=== PATIENT | female | born 1985 | race African-American/Black ===

== ENCOUNTER 2018-06-15 04:56 | Emergency (ER) | payer MEDICAID ==
[2018-06-15 05:03] VITALS: BP 119/63
[2018-06-15] MEDS ORDERED: CEPHALEXIN 500 MG CAPSULE PO ONE (05:47)
[2018-06-15] MEDS ORDERED: HYDROCODONE/ACETAMINOPHEN 10-325 MG TABLET PO ONE (05:48)
[2018-06-15] MEDS ORDERED: SULFAMETHOXAZOLE/TRIMETHOPRIM 800-160 MG TABLET PO ONE (05:48)
[2018-06-15] MEDS ORDERED: HYDROCODONE/ACETAMINOPHEN 5-325 MG (6 TAB/ER DISP) PO PRN (06:27)
--- NOTE | 2018-06-15 06:27 | ER Document Report ---
HPI - HPI Patient complains to provider of: Abscess Time Seen by Provider: 06/15/18 05:38 Pain Level: 5 Context: Patient is an otherwise healthy 32-year-old female resents to the emergency department for a potential abscess. Patient states she has a history of pilonidal abscesses. Patient states she has experienced some swelling and pain the same area her recent pilonidal abscess was which is what presents her to the emergency room. Patient's denying any fever, drainage from the area. - REPRODUCTIVE Reproductive: DENIES: : Past Medical History - General Information source: Patient - Social History Smoking Status: Current Every Day Smoker Chew tobacco use (# tins/day): No Drug Abuse: None Family History: Reviewed & Not Pertinent Patient has suicidal ideation: No Patient has homicidal ideation: No - Past Medical History Cardiac Medical History: Denies: Hx Atrial Fibrillation, Hx Congestive Heart Failure, Hx Coronary Artery Disease Pulmonary Medical History: Reports: Hx Asthma Denies: Hx Bronchitis, Hx Intubation, Hx Respiratory Failure Neurological Medical History: Denies: Hx Cerebrovascular Accident, Hx Migraine, Hx Seizures Endocrine Medical History: Denies: Hx Graves' Disease, Hx Hyperthyroidism Renal/ Medical History: Denies: Hx End Stage Renal Disease, Hx Hemodialysis, Hx Hydrocele, Hx Kidney Stones, Hx Peritoneal Dialysis Malignancy Medical History: Denies: Hx Bone Cancer, Hx Brain Cancer, Hx Breast Cancer GI Medical History: Denies: Hx Crohn's Disease, Hx Diverticulitis, Hx Gastroesophageal Reflux Disease Musculoskeletal Medical History: Denies Hx Fibromyalgia, Denies Hx Gout - Immunizations Immunizations up to date: Yes Hx Diphtheria, Pertussis, Tetanus Vaccination: Yes Vertical Provider Document - CONSTITUTIONAL Agree With Documented VS: Yes Notes: GENERAL: Alert, interacts well. No acute distress. HEAD: Normocephalic, atraumatic. EYES: Pupils equal, round, and reactive to light. Extraocular movements intact. ENT: Oral mucosa moist, tongue midline. NECK: Full range of motion. Supple. Trachea midline. LUNGS: Clear to auscultation bilaterally, no wheezes, rales, or rhonchi. No respiratory distress. HEART: Regular rate and rhythm. No murmur ABDOMEN: Soft, non-tender. Non-distended. Bowel sounds present in all 4 quadrants. EXTREMITIES: Moves all 4 extremities spontaneously. No edema, normal radial and dorsalis pedis pulses bilaterally. No cyanosis. BACK: no cervical, thoracic, lumbar midline tenderness. No saddle anesthesia, normal distal neurovascular exam. NEUROLOGICAL: Alert and oriented x3. Normal speech. cranial nerves II through XII grossly intact PSYCH: Normal affect, normal mood. SKIN: Warm, dry, normal turgor. 1 cm x 1 cm indurated area noted to the pilonidal cleft, surrounding erythema noted 3cm x 3cm. Skin is nonfluctuant at this time, very hard to touch. - INFECTION CONTROL TRAVEL OUTSIDE OF THE [place] IN LAST 30 DAYS: No Course - Re-evaluation Re-evalutation: 06/15/18 06:25 I have discussed with patient at length that this could potentially be the start of an abscess. I have also discussed with her that it is hard to touch at this time. Discussed that in order for us to perform an incision and drainage needs to be fluctuant. Discussed use of antibiotics and warm compresses or warm baths with Epson salt. Patient voices understanding, is afebrile, non-tachycardic, stable for discharge. - Vital Signs Vital signs: Temp Pulse Resp BP Pulse Ox 98 F 88 18 119/63 98 06/15/18 05:02 06/15/18 05:02 06/15/18 05:02 06/15/18 05:02 06/15/18 05:02 Discharge - Discharge Clinical Impression: Abscess Cellulitis Qualifiers: Site of cellulitis: buttock Qualified Code(s): L03.317 - Cellulitis of buttock Condition: Stable Disposition: HOME, SELF-CARE Instructions: Abscess ([facility]), Cephalexin ([facility]), Trimethoprim-Sulfa ([facility]), Oral Narcotic Medication ([facility]), Cellulitis ([facility]) Additional Instructions: As we discussed you have been seen and treated in the emergency department for a potential abscess. At this point time the skin around this pocket of infection is very hard. You should use warm compresses or warm baths with Epson salt to bring this abscess to ahead as we discussed. Please also take antibiotics as prescribed. Please make sure you return to the emergency room for any further concerns or follow-up with your primary care provider. Prescriptions: Cephalexin Monohydrate [Keflex 500 mg Capsule] 500 mg PO BID 7 Days #14 capsule Sulfamethoxazole/Trimethoprim [Bactrim Ds Tablet] 1 each PO BID 7 Days #14 tablet Forms: Return to Work Referrals: KRISTIN BEAN MD [ACTIVE STAFF] - Follow up as needed
== END 2018-06-15 07:06 | disposition home or self-care (01) ==
LOC: ER 04:56
DX: L03.317 Cellulitis of buttock (principal); F17.200 Nicotine dependence, unspecified, uncomplicated
CPT/HCPCS: 99282; J3490

== ENCOUNTER 2018-08-07 02:36 | Emergency (ER) | payer MEDICAID ==
[2018-08-07] MEDS ORDERED: CLINDAMYCIN HCL 150 MG CAPSULE PO ONE (04:49)
--- NOTE | 2018-08-07 04:56 | ER Document Report ---
ED General - General Chief Complaint: Abscess Stated Complaint: CYST Time Seen by Provider: 08/07/18 04:40 Notes: Patient is a pleasant 32-year-old female who presents with complaint of a spinal abscess. She says she had this once before and was placed on antibiotics and went away.'s approximately month ago. Has since returned. She denies any fevers. No vomiting. No other complaints at this time. TRAVEL OUTSIDE OF THE [place] IN LAST 30 DAYS: No - Related Data Allergies/Adverse Reactions: iodine [Iodine] Allergy (Severe, Verified 08/07/18 02:37) Shellfish * [Shellfish] Allergy (Severe, Verified 08/07/18 02:37) Past Medical History - Social History Smoking Status: Unknown if Ever Smoked Frequency of alcohol use: None Drug Abuse: None Family History: Reviewed & Not Pertinent - Past Medical History Cardiac Medical History: Denies: Hx Atrial Fibrillation, Hx Congestive Heart Failure, Hx Coronary Artery Disease Pulmonary Medical History: Reports: Hx Asthma Denies: Hx Bronchitis, Hx Intubation, Hx Respiratory Failure Neurological Medical History: Denies: Hx Cerebrovascular Accident, Hx Migraine, Hx Seizures Endocrine Medical History: Denies: Hx Graves' Disease, Hx Hyperthyroidism Renal/ Medical History: Denies: Hx End Stage Renal Disease, Hx Hemodialysis, Hx Hydrocele, Hx Kidney Stones, Hx Peritoneal Dialysis Malignancy Medical History: Denies: Hx Bone Cancer, Hx Brain Cancer, Hx Breast Cancer GI Medical History: Denies: Hx Crohn's Disease, Hx Diverticulitis, Hx Gastroesophageal Reflux Disease Musculoskeletal Medical History: Denies Hx Fibromyalgia, Denies Hx Gout - Immunizations Immunizations up to date: Yes Hx Diphtheria, Pertussis, Tetanus Vaccination: Yes Review of Systems - Review of Systems Notes: My Normal Review Basic REVIEW OF SYSTEMS: CONSTITUTIONAL : Denies fever, chills, or sweats. Denies recent illness. RESPIRATORY: Denies cough, cold, or chest congestion. Denies shortness of breath, difficulty breathing, or wheezing. GASTROINTESTINAL: Denies abdominal pain. Denies nausea, vomiting, or diarrhea. GENITOURINARY: Denies difficulty urinating, painful urination, burning, frequency, or blood in urine. MUSCULOSKELETAL: Pain in the area of swelling in the upper gluteal cleft. SKIN: Denies rash or skin lesions. NEUROLOGICAL: Denies altered mental status or loss of consciousness. Denies headache. Denies weakness or paralysis or loss of use of either side. Denies problems with gait or speech. Denies sensory or motor loss. ALL OTHER SYSTEMS REVIEWED AND NEGATIVE. Physical Exam - Vital signs Vitals: Temp Pulse Resp BP 97.8 F 92 20 117/74 08/07/18 02:39 08/07/18 02:39 08/07/18 02:39 08/07/18 02:39 - Notes Notes: General Appearance: Well nourished, alert, cooperative, no acute distress, mild obvious discomfort. Vitals: reviewed, See vital signs table. Gluteal region: Patient has a small area of fluctuance at the superior gluteal cleft. Bedside ultrasound does show a small fluid collection consistent with an abscess. No surrounding crepitance. Localized erythema. Extremities: strength 5/5 in all extremities, good pulses in all extremities, Skin: warm, dry, appropriate color, no rash Neuro: speech clear, oriented x 3, normal affect, responds appropriately to questions. Course - Re-evaluation Re-evalutation: 08/07/18 05:18 Patient does have a small pilonidal abscess. I informed her it is best to incise and drain this as it would be less likely that this will come back and it would probably not worsen. I informed patient that if we do not incise and drain it and just place her on antibiotics that it may improve; however, there is a good chance that will come back even if it does improve and there is also a good chance that it would actually worsen increase in size and she could become sick because of this. Patient shows understanding of this but says that she has to take her son to [place] and wants to be able get in the pool with him and therefore does not want incised and drained and prefers just be on antibiotics. She said she would go to the closest ER if she starts having increasing swelling, spreading redness, fevers, or she feels it is worsening in any way. Patient will be discharged home as she requests on antibiotics. Dictation of this chart was performed using voice recognition software; therefore, there may be some unintended grammatical errors. - Vital Signs Vital signs: Temp Pulse Resp BP Pulse Ox 97.8 F 92 20 117/74 08/07/18 02:39 08/07/18 02:39 08/07/18 02:39 06/25/19 02:39 Discharge - Discharge Clinical Impression: Pilonidal abscess Condition: Stable Disposition: HOME, SELF-CARE Additional Instructions: As discussed with you we do recommend incising and draining the abscess you have. We do understand that you do have to go on vacation. We will place you on antibiotics and delay incision and drainage at this time. Antibiotics may make the abscess improve, but there is a good chance that it will return. There is also chance that it will get worse become larger. It is very important that you go to the nearest ER if this abscess or the swelling grows in size. Please have a low threshold to return to ER immediately if you have fevers, increasing size of swelling, increasing pain, or if you feel unwell in any way. Prescriptions: Clindamycin HCl [Cleocin 150 mg Capsule] 300 mg PO Q6 #56 capsule Forms: Return to Work
[2018-08-07 05:19] VITALS: BP 116/79
== END 2018-08-07 05:20 | disposition home or self-care (01) ==
LOC: ER 02:36
DX: L05.01 Pilonidal cyst with abscess (principal); J45.909 Unspecified asthma, uncomplicated; Z91.013 Allergy to seafood
CPT/HCPCS: 99282; J3490

== ENCOUNTER 2018-12-07 13:05 | Emergency (ER) | payer SELFPAY ==
[2018-12-07] MEDS ORDERED: METOCLOPRAMIDE HCL INJ/PF 10 MG/2 ML SDV IV ONE (14:14)
[2018-12-07] MEDS ORDERED: NORMAL SALINE 1000 ML 1,000 ML IV ONE (14:14)
--- NOTE | 2018-12-07 14:16 | ER Document Report ---
ED Medical Screen (RME) - General Chief Complaint: Pelvic Pain Stated Complaint: VOMITING,ABDOMINAL PAIN, BACK PAIN Time Seen by Provider: 12/07/18 14:07 Notes: 33-year-old female with recent positive test 2 weeks ago presents to the emergency department with nausea and vomiting every time she attempts to eat or drink anything. She is also having pelvic cramping which is her chief concern. Denies any vaginal bleeding. No initial encounter with OB yet. Denies fevers or chills, denies urinary symptoms. Exam: Well-appearing in no acute distress, lungs are clear in all smith, regular cardiac rate and rhythm, abdominal exam deferred in triage I have greeted and performed a rapid initial assessment of this patient. A comprehensive ED assessment and evaluation of the patient, analysis of test results and completion of medical decision making process will be conducted by an additional ED providers. TRAVEL OUTSIDE OF THE [place] IN LAST 30 DAYS: No - Related Data Allergies/Adverse Reactions: iodine [Iodine] Allergy (Severe, Verified 12/07/18 13:58) Shellfish * [Shellfish] Allergy (Severe, Verified 12/07/18 13:58) Past Medical History - Past Medical History Cardiac Medical History: Denies: Hx Atrial Fibrillation, Hx Congestive Heart Failure, Hx Coronary Artery Disease Pulmonary Medical History: Reports: Hx Asthma Denies: Hx Bronchitis, Hx Intubation, Hx Respiratory Failure Neurological Medical History: Denies: Hx Cerebrovascular Accident, Hx Migraine, Hx Seizures Endocrine Medical History: Denies: Hx Graves' Disease, Hx Hyperthyroidism Renal/ Medical History: Denies: Hx End Stage Renal Disease, Hx Hemodialysis, Hx Hydrocele, Hx Kidney Stones, Hx Peritoneal Dialysis Malignancy Medical History: Denies: Hx Bone Cancer, Hx Brain Cancer, Hx Breast Cancer GI Medical History: Denies: Hx Crohn's Disease, Hx Diverticulitis, Hx Gastroesophageal Reflux Disease Musculoskeltal Medical History: Denies Hx Fibromyalgia, Denies Hx Gout - Immunizations Immunizations up to date: Yes Hx Diphtheria, Pertussis, Tetanus Vaccination: Yes Physical Exam - Vital signs Vitals: Temp Pulse Resp BP Pulse Ox 99 F 99 18 157/91 H 98 12/07/18 13:22 12/07/18 13:22 12/07/18 13:22 12/07/18 13:22 12/07/18 13:22 Course - Vital Signs Vital signs: Temp Pulse Resp BP Pulse Ox 99 F 99 18 157/91 H 98 12/07/18 13:22 12/07/18 13:22 12/07/18 13:22 12/07/18 13:22 12/07/18 13:22
[2018-12-07 15:16] LABS: ABSOLUTE BASOPHILS # (AUTO) 0.1 10^3/uL (0.0-0.2); ABSOLUTE EOSINOPHILS # (AUTO) 0.2 10^3/uL (0.0-0.6); ABSOLUTE MONOCYTES (AUTO) 0.7 10^3/uL (0.1-1.4); ABSOLUTE NEUT (AUTO) 9.2 10^3/uL (1.7-8.2); BASOPHILS % (AUTO) 0.5 % (0-2); EOSINOPHILS % (AUTO) 1.8 % (0-6); HEMATOCRIT 33.3 % (36.0-47.0); HEMOGLOBIN 10.1 g/dL (12.0-15.5); LYMPHOCYTES % (AUTO) 22.6 % (13-45); MEAN CORPUSCULAR HGB CONC 30.5 g/dL (32.0-36.0); MEAN CORPUSCULAR VOLUME 66 fl (80-97); PLATELET COUNT 374 10^3/uL (150-450); RED BLOOD COUNT 5.08 10^6/uL (3.72-5.28); RED CELL DISTRIBUTION WIDTH 20.7 % (11.5-14.0); SEGMENTED NEUTROPHILS % (AUTO) 70.1 % (42-78); TOTAL CELLS COUNTED % (AUTO) 100 %; WHITE BLOOD COUNT 13.2 10^3/uL (4.0-10.5)
[2018-12-07 15:24] LABS: APPEARANCE,URINE SLIGHTLY-CLOUDY; BILIRUBIN,URINE NEGATIVE (NEGATIVE); COLOR,URINE YELLOW; GLUCOSE, URINE 150 mg/dL (NEGATIVE); KETONES,URINE TRACE mg/dL (NEGATIVE); LEUKOCYTE ESTERASE,URINE MODERATE (NEGATIVE); NITRITE,URINE NEGATIVE (NEGATIVE); PROTEIN,URINE 30 mg/dL (NEGATIVE); UROBILINOGEN,URINE NEGATIVE mg/dL (<2.0)
[2018-12-07 15:37] LABS: ALKALINE PHOSPHATASE 65 U/L (38-126); ANION GAP 12 (5-19); ASPARTATE AMINO TRANSFERASE 27 U/L (14-36); BILIRUBIN,DIRECT 0.2 mg/dL (0.0-0.4); BILIRUBIN,TOTAL 0.4 mg/dL (0.2-1.3); BLOOD UREA NITROGEN 13 mg/dL (7-20); CALCIUM 9.2 mg/dL (8.4-10.2); CARBON DIOXIDE 21 mmol/L (22-30); CHLORIDE 103 mmol/L (98-107); GLUCOSE 129 mg/dL (75-110); POTASSIUM 4.4 mmol/L (3.6-5.0); TOTAL PROTEIN 8.3 g/dL (6.3-8.2)
--- NOTE | 2018-12-07 15:46 | RADIOLOGY REPORT (SQ) ---
EXAM DESCRIPTION: U/S OB TRANSVAG W/DOPPLER COMPLETED DATE/TIME: 12/07/2018 3:26 pm REASON FOR STUDY: + preg test, pelvic pain COMPARISON: None. TECHNIQUE: Transvaginal static and realtime grayscale images acquired of the pelvis. Additional rigoberto cted spectral and color Doppler images recorded. All images stored on PACs. bHCG: Pending. CLINICAL DATES: LMP unknown. LIMITATIONS: None. FINDINGS: FETUS: Single Living intrauterine . ULTRASOUND EGA: 10 weeks 6 days. ULTRASOUND IKE: 06/29/2019 CRL: 3.9 cm. FHR: 150 beats per minute. SURVEY: Too early to assess. AMNIOTIC FLUID: Too early to assess. PLACENTA: Too early to assess. SUBCHORIONIC BLEED: No. UTERUS: The uterus measures 12.9 x 8.5 x 8.4 cm. CERVICAL LENGTH: 4.2 cm. Closed. RIGHT ADNEXA: Unable to visualize the right ovary. There is no adnexal mass or free fluid. LEFT ADNEXA: Unable to visualize the left ovary. There is no adnexal mass or free fluid. FREE FLUID: None. OTHER: No other finding. IMPRESSION: LIVE INTRAUTERINE GESTATION. EGA 10 WEEKS 6 DAYS BASED ON ULTRASOUND. Trimester of : First trimester - 0 to 13 weeks. TECHNICAL DOCUMENTATION: JOB ID: [id number] [employer]- All Rights Reserved rev-06/30 Reading location - IP/workstation name: [email or web address]
[2018-12-07 16:08] LABS: RBCS (WET MOUNT) NO RBCS SEEN; T.VAGINALIS (WET MOUNT) NO TRICHOMONAS SEEN; WBCS (WET MOUNT) NO WBCS SEEN; YEAST (WET MOUNT) NO YEAST SEEN
--- NOTE | 2018-12-07 16:18 | ER Document Report ---
ED General - General Chief Complaint: Pelvic Pain Stated Complaint: VOMITING,ABDOMINAL PAIN, BACK PAIN Time Seen by Provider: 12/07/18 14:07 Primary Care Provider: [facility] [Provider Group] - Follow up in 3-5 days Notes: Patient presents first trimester with abdominal pain rating to the back, pelvic pain without discharge and with mild nausea but no vomiting. No fever. No urinary symptoms. No history of STIs. TRAVEL OUTSIDE OF THE [place] IN LAST 30 DAYS: No - Related Data Allergies/Adverse Reactions: iodine [Iodine] Allergy (Severe, Verified 12/07/18 13:58) Shellfish * [Shellfish] Allergy (Severe, Verified 12/07/18 13:58) Past Medical History - General Last Menstrual Period: unknown - Social History Smoking Status: Former Smoker Family History: Reviewed & Not Pertinent Patient has suicidal ideation: No Patient has homicidal ideation: No - Past Medical History Cardiac Medical History: Denies: Hx Atrial Fibrillation, Hx Congestive Heart Failure, Hx Coronary Artery Disease Pulmonary Medical History: Reports: Hx Asthma Denies: Hx Bronchitis, Hx Intubation, Hx Respiratory Failure Neurological Medical History: Denies: Hx Cerebrovascular Accident, Hx Migraine, Hx Seizures Endocrine Medical History: Denies: Hx Graves' Disease, Hx Hyperthyroidism Renal/ Medical History: Denies: Hx End Stage Renal Disease, Hx Hemodialysis, Hx Hydrocele, Hx Kidney Stones, Hx Peritoneal Dialysis Malignancy Medical History: Denies: Hx Bone Cancer, Hx Brain Cancer, Hx Breast Cancer GI Medical History: Denies: Hx Crohn's Disease, Hx Diverticulitis, Hx Gastroesophageal Reflux Disease Musculoskeletal Medical History: Denies Hx Fibromyalgia, Denies Hx Gout - Immunizations Immunizations up to date: Yes Hx Diphtheria, Pertussis, Tetanus Vaccination: Yes Review of Systems - Review of Systems Notes: REVIEW OF SYSTEMS GEN: Denies fever, chills, weight loss ENT: Denies sore throat, nasal discharge, ear pain EYES: Denies blurry vision, eye pain, discharge CV: Denies chest pain, palpitations, edema RESP: Denies cough, shortness of breath, wheezing GI: Abdominal pain vomiting miryam MSK: Denies joint pain/swelling, edema, SKIN: Denies rash, skin lesions LYMPH: Denies swollen glands/lymph nodes NEURO: Denies headache, focal weakness or numbness, dizziness PSYCH: Denies depression, suicidal or homicidal ideation PHYSICAL EXAMINATION General: No acute distress, well-nourished Head: Atraumatic, normocephalic ENT: Mouth normal, oropharynx moist, no exudates or tonsillar enlargement Eyes: Conjunctiva normal, pupils equal, lids normal Neck: No JVD, supple, no guarding CVS: Normal rate, regular rhythm, no murmurs Resp: No resp distress, equal and normal breath sounds bilaterally GI: Nondistended, soft, no tenderness to palpation, no rebound or guarding Ext: No deformities, no edema, normal range of motion in upper and lower ext Back: No CVA or midline TTP Skin: No rash, warm Lymphatic: No lymphadeopathy noted Neuro: Awake, alert. Face symmetric. GCS 15. Physical Exam - Vital signs Vitals: Temp Pulse Resp BP Pulse Ox 99 F 99 18 157/91 H 98 12/07/18 13:22 12/07/18 13:22 12/07/18 13:22 12/07/18 13:22 12/07/18 13:22 Course - Re-evaluation Re-evalutation: 12/07/18 23:53 Patient presents with abdominal pain, her pelvic exam does not show any CMT. She had some scant discharge which showed up with leukorrhea on wet mount. Mild white count. Urine shows infection per We will treat with oral Macrobid, for 10 days given that she is . She does not appear septic despite her white count looks well and is already tolerating p.o. okay to be discharged and [facility]. I have discussed with the patient there likely diagnosis, aftercare plan, follow-up plans and my usual and customary return precautions. They verbalized understanding of this. - Vital Signs Vital signs: Temp Pulse Resp BP Pulse Ox 97.3 F 95 18 117/75 99 12/07/18 16:43 12/07/18 16:43 12/07/18 13:22 12/07/18 16:43 12/07/18 16:43 - Laboratory Result Diagrams: 12/07/18 14:44 12/07/18 14:44 Laboratory results interpreted by me: 12/07/18 12/07/18 12/07/18 14:44 14:44 14:44 WBC 13.2 H Hgb 10.1 L Hct 33.3 L MCV 66 L MCH 20.0 L MCHC 30.5 L RDW 20.7 H Absolute Neuts (auto) 9.2 H Sodium 135.8 L Carbon Dioxide 21 L Glucose 129 H Total Protein 8.3 H Beta HCG, Quant 326561.00 H Urine Protein 30 H Urine Glucose (UA) 150 H Urine Ketones TRACE H Ur Leukocyte Esterase MODERATE H Discharge - Discharge Clinical Impression: Cystitis, unspecified without hematuria Condition: Good Disposition: HOME, SELF-CARE Instructions: Antibiotic Therapy ([facility]), Pelvic Pain in ([facility]), Urinary Tract Infection ([facility]) Prescriptions: Pnv No.95/Ferrous Fum/Folic AC [ Caplet] 1 each PO QHS #30 tablet Nitrofurantoin/Nitrofuran Mac [Macrobid 100 mg Capsule] 1 tab PO BID #20 capsule Referrals: [facility] [Provider Group] - Follow up in 3-5 days
[2018-12-07 16:44] VITALS: BP 117/75
== END 2018-12-07 16:44 | disposition home or self-care (01) ==
LOC: ER 13:05
DX: O23.11 Infections of bladder in pregnancy, first trimester (principal); O26.891 Other specified pregnancy related conditions, first trimester; R10.2 Pelvic and perineal pain; R11.0 Nausea; N89.8 Other specified noninflammatory disorders of vagina; O99.511 Diseases of the respiratory system complicating pregnancy, first trimester; J45.909 Unspecified asthma, uncomplicated; Z3A.00 Weeks of gestation of pregnancy not specified; Z91.013 Allergy to seafood; Z87.891 Personal history of nicotine dependence
CPT/HCPCS: 99284; 96361; 96374; 36415; 87210; 84702; 85025; 80053; 81001; 76817; 93976; J2765; J7030

== ENCOUNTER 2019-06-10 13:24 | Outpatient (CLI) | payer MEDICAID ==
[2019-06-10 14:50] LABS: APPEARANCE,URINE CLOUDY; BILIRUBIN,URINE NEGATIVE (NEGATIVE); GLUCOSE, URINE NEGATIVE (NEGATIVE); KETONES,URINE NEGATIVE (NEGATIVE); LEUKOCYTE ESTERASE,URINE MODERATE (NEGATIVE); NITRITE,URINE NEGATIVE (NEGATIVE); PROTEIN,URINE 100 mg/dL (NEGATIVE)
[2019-06-10 14:56] LABS: COLOR,URINE DARK YELLOW
[2019-06-10 15:10] LABS: URINE AMPHETAMINES SCREEN NEGATIVE; URINE BARBITURATES SCREEN NEGATIVE; URINE BENZODIAZEPINES SCREEN NEGATIVE; URINE COCAINE SCREEN NEGATIVE; URINE MARIJUANA (THC) SCREEN NEGATIVE; URINE METHADONE SCREEN NEGATIVE; URINE PHENCYCLIDINE SCREEN NEGATIVE
--- NOTE | 2019-06-10 15:31 | Non Stress Test Report ---
Non Stress Test Datetime Report Generated by CPN: 06/10/2019 15:31 DEMOGRAPHIC EGA NST: 37.2 INDICATION Indication for Study (NST) Other: IUP 37.2; Not in labor VITAL SIGNS Temperature - NST: 98.2 Pulse - NST: 86 RESP - NST: 20 NBPSYS NST: 121 NBPDIA NST: 73 MONITORING Monitor Explained: Monitor Explained; Test Explained; Patient Verbalized Understanding Time on Monitor: 06/10/2019 13:42 Time off Monitor: 06/10/2019 15:19 NST Duration: 97 NST INTERVENTIONS NST Interventions: PO Hydration; Reposition Patient Physician Notified NST: C. Hwang, CNM BABY A: [id number] BABY A Movement : Present Contraction Frequency : 0 FHR Baseline : 140 Accelerations : 15X15 Decelerations : None Variability : Moderate 6-25bpm NST Review: Meets Criteria for Reactive NST NST Review and Verified By : Juliana Hughes, RN NST Results: Reactive NST COMMENTS NST Comments: C. Hwang, CNM on unit, reviewed strip NST REPORT Report Trigger: Send Report
== END 2019-06-10 15:27 | disposition home or self-care (01) ==
LOC: LC 13:24
PROVIDERS: ATTEND Student in an Organized Health Care Education/Training Program
DX: O99.283 Endocrine, nutritional and metabolic diseases complicating pregnancy, third trimester (principal); E86.0 Dehydration; O09.523 Supervision of elderly multigravida, third trimester; Z3A.37 37 weeks gestation of pregnancy
CPT/HCPCS: 59025; 80307; 81005

== ENCOUNTER 2019-06-13 01:33 | Inpatient (IN) | payer MEDICAID ==
[2019-06-13] MEDS ORDERED: PENICILLIN G POTASSIUM 5,000,000 UNIT in DEXTROSE 5%-WATER 100 ML IV ONE (02:08)
[2019-06-13] MEDS ORDERED: RINGERS SOLUTION,LACTATED 1,000 ML IV ONE (02:08)
[2019-06-13] MEDS ORDERED: RINGERS SOLUTION,LACTATED 1,000 ML IV PRN (02:08)
--- NOTE | 2019-06-13 02:10 | Admission Physical ---
Datetime Report Generated by CPN: 06/13/2019 02:10 CURRENT ADMISSION Chief Complaint: Uterine Contractions; Suspected Ruptured Membranes Indication for Induction: Not Applicable Admit Impression : Term, Intrauterine Admit Plan: Admit to Unit; Initiate Labor Protocol ALLERGIES Medication Allergies: Yes Medication Allergies: Shellfish */SV (12/07/2018); iodine/SV (12/07/2018) Latex: No Latex Allergies Food Allergies: Shellfish OBSTETRICAL HISTORY EDC: 06/29/2019 00:00 : 7 Para: 3 Term: 3 : 0 SAB: 2 IAB: 1 Livin Gestational Diabetes: Yes (Annotations: Data stored by CPN on behalf of user) PHYSICAL EXAM General: Normal HEENT: Normal Neurologic: Normal Thyroid: Normal Heart: Normal Lungs: Normal Breast: Deferred Back: Normal Abdomen: Normal Genitourinary Exam: Normal Extremities: Normal DTRs: Normal Pelvic Type: Adequate VAGINAL EXAM Dilatation: 2 Effacement: 50 Station: -2 MEMBRANES Pooling: Positive Membranes: Ruptured FETUS A EGA: 37.5 Monitoring: External US FHR- Baseline: 130 Variability: Moderate 6-25bpm Decelerations: None FHR Category: Category I Presentation: Vertex Admit Comment: admit for delivery INFORMED CONSENT Signature: with User ID: [email or web address]
[2019-06-13] MEDS ORDERED: OXYTOCIN 10 UNIT/ML VIAL ONE ×2 (02:14→07:13)
[2019-06-13] MEDS ORDERED: MISOPROSTOL 0.2 MG TABLET ONE ×2 (02:14→07:13)
[2019-06-13] MEDS ORDERED: OXYTOCIN/NORMAL SALINE 0 UNIT/0 ML RTUINJ ONE (02:15)
[2019-06-13] MEDS ORDERED: LIDOCAINE 1% INJ-PF (10 MG/ML) 30 ML SDV ONE ×3 (02:15→07:14)
[2019-06-13 02:51] LABS: ABSOLUTE BASOPHILS # (AUTO) 0.1 10^3/uL (0.0-0.2); ABSOLUTE EOSINOPHILS # (AUTO) 0.2 10^3/uL (0.0-0.6); ABSOLUTE LYMPHOCYTES (AUTO) 2.6 10^3/uL (0.5-4.7); ABSOLUTE MONOCYTES (AUTO) 0.9 10^3/uL (0.1-1.4); ABSOLUTE NEUT (AUTO) 6.9 10^3/uL (1.7-8.2); BASOPHILS % (AUTO) 0.9 % (0-2); EOSINOPHILS % (AUTO) 1.4 % (0-6); HEMATOCRIT 32.6 % (36.0-47.0); HEMOGLOBIN 10.6 g/dL (12.0-15.5); LYMPHOCYTES % (AUTO) 24.5 % (13-45); MEAN CORPUSCULAR HEMOGLOBIN 23.2 pg (27.0-33.4); MEAN CORPUSCULAR HGB CONC 32.6 g/dL (32.0-36.0); MEAN CORPUSCULAR VOLUME 71 fl (80-97); MONOCYTES % (AUTO) 8.7 % (3-13); PLATELET COUNT 211 10^3/uL (150-450); RED BLOOD COUNT 4.58 10^6/uL (3.72-5.28); RED CELL DISTRIBUTION WIDTH 26.4 % (11.5-14.0); SEGMENTED NEUTROPHILS % (AUTO) 64.5 % (42-78); TOTAL CELLS COUNTED % (AUTO) 100 %; WHITE BLOOD COUNT 10.7 10^3/uL (4.0-10.5)
[2019-06-13] MEDS ORDERED: PENICILLIN G-K 5 MILLION UNIT VIAL ONE ×2 (02:52→06:33)
[2019-06-13 03:08] LABS: ANISOCYTOSIS 3+; HYPOCHROMASIA 1+; PLATELET COMMENT ADEQUATE; POIKILOCYTOSIS SLIGHT; POLYCHROMASIA SLIGHT; TEAR DROP CELLS SLIGHT
[2019-06-13] MEDS ORDERED: MORPHINE SULFATE 10 MG/ML INJ IV ONE (03:34)
[2019-06-13] MEDS ORDERED: PROMETHAZINE HCL INJ 25 MG/1 ML VIAL IV ONE (03:35)
[2019-06-13] MEDS ORDERED: MORPHINE SULFATE 10 MG/ML INJ ONE (03:39)
[2019-06-13] MEDS ORDERED: PROMETHAZINE HCL INJ 25 MG/1 ML VIAL ONE (03:39)
[2019-06-13] MEDS ORDERED: EPHEDRINE SULFATE INJ 50 MG/1 ML AMPULE ONE (04:37)
[2019-06-13] MEDS ORDERED: FENTANYL/BUPIVACAINE/NS/PF 300 MCG/150 ML RTUINJ EPI ONE (04:37)
[2019-06-13] MEDS ORDERED: BUPIVACAINE HCL 0.25 % INJ/PF (2.5 MG/1 ML) 30 ML VIAL ONE (04:38)
[2019-06-13 06:31] LABS: APPEARANCE,URINE CLEAR; BILIRUBIN,URINE NEGATIVE (NEGATIVE); COLOR,URINE YELLOW; GLUCOSE, URINE NEGATIVE (NEGATIVE); KETONES,URINE TRACE mg/dL (NEGATIVE); LEUKOCYTE ESTERASE,URINE SMALL (NEGATIVE); NITRITE,URINE NEGATIVE (NEGATIVE); PROTEIN,URINE 30 mg/dL (NEGATIVE); URINE SPECIFIC GRAVITY 1.026
[2019-06-13 06:44] LABS: URINE AMPHETAMINES SCREEN NEGATIVE; URINE BARBITURATES SCREEN NEGATIVE; URINE BENZODIAZEPINES SCREEN NEGATIVE; URINE COCAINE SCREEN NEGATIVE; URINE MARIJUANA (THC) SCREEN NEGATIVE; URINE METHADONE SCREEN NEGATIVE; URINE PHENCYCLIDINE SCREEN NEGATIVE
[2019-06-13] MEDS ORDERED: OXYTOCIN/NORMAL SALINE 20 UNIT/1,000 ML RTUINJ ONE (07:14)
[2019-06-13] MEDS ORDERED: BENZOCAINE/MENTHOL AEROSOL SPRAY 56 ML TOP PRN (11:00)
[2019-06-13] MEDS ORDERED: DIBUCAINE 1% OINTMENT 28 GM TP PRN (11:00)
[2019-06-13] MEDS ORDERED: MEASLES,MUMPS&RUBELLA VACC/PF 0.5 ML VIAL SUBCUT PRN (11:00)
[2019-06-13] MEDS ORDERED: ZOLPIDEM TARTRATE 5 MG TABLET PO PRN (11:00)
[2019-06-13] MEDS ORDERED: ACETAMINOPHEN WITH CODEINE #3 TABLET PO PRN (11:00)
[2019-06-13] MEDS ORDERED: DIPH/PERTUSS(ACELL)/TETANUS VAC/PF 0.5 ML SYR (>=10YO) IM PRN (11:00)
[2019-06-13] MEDS ORDERED: MISOPROSTOL 0.2 MG TABLET PR ONE (11:00)
[2019-06-13] MEDS ORDERED: OXYTOCIN/NORMAL SALINE 20 UNIT/1,000 ML RTUINJ IV PRN (11:00)
[2019-06-13] MEDS ORDERED: IBUPROFEN 800 MG TABLET ONE (13:50)
[2019-06-13] MEDS: IBUPROFEN 800 MG TABLET PO SCH ×2 (13:53→21:19)
[2019-06-13] MEDS: PENICILLIN G POTASSIUM 2,500,000 UNIT in DEXTROSE 5%-WATER 50 ML IV SCH ×2 (15:04→15:10)
[2019-06-13] MEDS: DOCUSATE SODIUM 100 MG CAPSULE PO SCH ×2 (18:01→18:08)
[2019-06-13] MEDS: FERROUS SULFATE 325 MG TABLET PO SCH (18:01)
[2019-06-13] MEDS: ACETAMINOPHEN WITH CODEINE #3 TABLET PO PRN (18:07)
[2019-06-14] MEDS: ACETAMINOPHEN WITH CODEINE #3 TABLET PO PRN ×3 (00:45→20:33)
[2019-06-14] MEDS: IBUPROFEN 800 MG TABLET PO SCH ×3 (05:27→21:37)
[2019-06-14 06:58] LABS: HEMATOCRIT 27.8 % (36.0-47.0); HEMOGLOBIN 9.1 g/dL (12.0-15.5); MEAN CORPUSCULAR HEMOGLOBIN 23.5 pg (27.0-33.4); MEAN CORPUSCULAR HGB CONC 32.7 g/dL (32.0-36.0); MEAN CORPUSCULAR VOLUME 72 fl (80-97); PLATELET COUNT 192 10^3/uL (150-450); RED BLOOD COUNT 3.86 10^6/uL (3.72-5.28); RED CELL DISTRIBUTION WIDTH 26.6 % (11.5-14.0)
[2019-06-14] MEDS: PRENATAL VITAMIN W DHA CAPSULE PO SCH (09:25)
[2019-06-14] MEDS: DOCUSATE SODIUM 100 MG CAPSULE PO SCH ×2 (09:25→17:32)
[2019-06-14] MEDS: SENNOSIDES/DOCUSATE 8.6-50 MG 1 EACH TABLET PO SCH (09:25)
[2019-06-14] MEDS: FERROUS SULFATE 325 MG TABLET PO SCH ×2 (09:25→17:36)
--- NOTE | 2019-06-14 10:11 | PDOC PROGRESS REPORT ---
Subjective-OB Progress Note for:: 06/14/19 - PP Day #1, doing well, UOB, voiding, O+, rubella immune, bottlefeeding Physical Exam (OB) Vital Signs: Temp Pulse Resp BP Pulse Ox 97.9 F 90 16 148/76 H 97 06/14/19 07:20 06/14/19 07:20 06/14/19 07:20 06/14/19 07:20 06/14/19 07:20 Intake & Output 06/13/19 06/14/19 06/15/19 06:59 06:59 06:59 Intake Total 720 Balance 720 Weight 124.284 kg - General General Appearance: Appears well, Alert In distress: None - PIH/Pre-Eclampsia DTR's: 1 + Clonus: Negative Headache: Absent Epigastric Pain: No Visual Changes: No - Lochia Lochia Amount: Scant < 10 ml Lochia Color: Rubra/Red - Abdomen Description: Soft, Round Hernia Present: No Fundal Description: Firm, Midline Fundal Height: u/u - u/2 - Respiratory Respiratory Status: No respiratory distress - Abdominal Distension: No distension Tenderness: Nontender - Genitourinary Genitourinary Note: voiding - Extremities Upper extremity: Normal inspection Lower extremities: Edema - Neurological Cognition: Normal Orientation: AAOx4 - Psychological Associated symptoms: Normal affect, Normal mood - Skin Skin Temperature: Warm Skin Moisture: Dry Objective-Diagnostic Laboratory: 06/14/19 06:30 06/14/19 06:30 WBC 13.0 H RBC 3.86 Hgb 9.1 L Hct 27.8 L MCV 72 L MCH 23.5 L MCHC 32.7 RDW 26.6 H Plt Count 192 Assessment and Plan(PN) - Assessment and Plan (1) Acute blood loss anemia Is this a current diagnosis for this admission?: Yes (2) 37 weeks gestation of Is this a current diagnosis for this admission?: Yes (3) (normal spontaneous vaginal delivery) Is this a current diagnosis for this admission?: Yes (4) atony of uterus with hemorrhage Is this a current diagnosis for this admission?: Yes Plan:: Abdirizak PP orders, ambulation encouraged - Time Spent with Patient Time with patient: Less than 15 minutes Medications reviewed and adjusted accordingly: Yes - Disposition Anticipated Discharge: Home Within: within 24 hours
[2019-06-15] MEDS: ACETAMINOPHEN WITH CODEINE #3 TABLET PO PRN (00:33)
[2019-06-15] MEDS: IBUPROFEN 800 MG TABLET PO SCH (05:28)
[2019-06-15] MEDS: FERROUS SULFATE 325 MG TABLET PO SCH ×2 (09:51→09:54)
[2019-06-15] MEDS: DOCUSATE SODIUM 100 MG CAPSULE PO SCH (09:51)
[2019-06-15] MEDS: PRENATAL VITAMIN W DHA CAPSULE PO SCH (09:51)
[2019-06-15] MEDS: SENNOSIDES/DOCUSATE 8.6-50 MG 1 EACH TABLET PO SCH (09:51)
--- NOTE | 2019-06-15 10:14 | PDOC DISCHARGE SUMMARY ---
Impression - Admit/DC Date/PCP Admission Date/Primary Care Provider: 06/13/19 02:15 RAMON JOHNSON MD Discharge Date: 06/15/19 - PP Day #2, doing well, no complaints, UOB voiding, O+, Rubella Immune, bottlefeeding - Discharge Diagnosis (1) Acute blood loss anemia Is this a current diagnosis for this admission?: Yes (2) 37 weeks gestation of Is this a current diagnosis for this admission?: Yes (3) (normal spontaneous vaginal delivery) Is this a current diagnosis for this admission?: Yes (4) atony of uterus with hemorrhage Is this a current diagnosis for this admission?: Yes (5) Group beta Strep positive Is this a current diagnosis for this admission?: Yes - Additional Information Resuscitation Status: Full Code Discharge Diet: As Tolerated, Regular Discharge Activity: Activity As Tolerated, No Lifting Over 10 Pounds, Pelvic Rest Referrals: RAMON JOHNSON MD [Primary Care Provider] - Prescriptions: Ibuprofen [Motrin 800 mg Tablet] 800 mg PO Q8 #60 tablet Home Medications: Pnv No.95/Ferrous Fum/Folic AC [ Caplet] 1 each PO QHS #30 tablet 12/07/18 Ferrous Gluconate [Iron] 325 mg PO DAILY 06/13/19 Ibuprofen [Motrin 800 mg Tablet] 800 mg PO Q8 #60 tablet 06/15/19 HPI Reason(s) for Admission: Onset of Labor Intrapartum Procedure(s): Spontaneous Vaginal Delivery Complication(s): Hemorrhage-Uterine [place] Hospital Course Hospital Course: routine Results Laboratory Results: WBC 13.0 10^3/uL (4.0-10.5) H 06/14/19 06:30 RBC 3.86 10^6/uL (3.72-5.28) 06/14/19 06:30 Hgb 9.1 g/dL (12.0-15.5) L 06/14/19 06:30 Hct 27.8 % (36.0-47.0) L 06/14/19 06:30 MCV 72 fl (80-97) L 06/14/19 06:30 MCH 23.5 pg (27.0-33.4) L 06/14/19 06:30 MCHC 32.7 g/dL (32.0-36.0) 06/14/19 06:30 RDW 26.6 % (11.5-14.0) H 06/14/19 06:30 Plt Count 192 10^3/uL (150-450) 06/14/19 06:30 Lymph % (Auto) 24.5 % (13-45) 06/13/19 02:38 [place] % (Auto) 8.7 % (3-13) 06/13/19 02:38 Eos % (Auto) 1.4 % (0-6) 06/13/19 02:38 Baso % (Auto) 0.9 % (0-2) 06/13/19 02:38 Absolute Neuts (auto) 6.9 10^3/uL (1.7-8.2) 06/13/19 02:38 Absolute Lymphs (auto) 2.6 10^3/uL (0.5-4.7) 06/13/19 02:38 Absolute Monos (auto) 0.9 10^3/uL (0.1-1.4) 06/13/19 02:38 Absolute Eos (auto) 0.2 10^3/uL (0.0-0.6) 06/13/19 02:38 Absolute Basos (auto) 0.1 10^3/uL (0.0-0.2) 06/13/19 02:38 Seg Neutrophils % 64.5 % (42-78) 06/13/19 02:38 Platelet Comment ADEQUATE 06/13/19 02:38 Polychromasia SLIGHT 06/13/19 02:38 Hypochromasia 1+ 06/13/19 02:38 Poikilocytosis SLIGHT 06/13/19 02:38 Anisocytosis 3+ 06/13/19 02:38 Microcytosis 1+ 06/13/19 02:38 Tear Drop Cells SLIGHT 06/13/19 02:38 POC Glucose 59 mg/dL (70-110) L 06/13/19 15:04 Urine Color YELLOW 06/13/19 06:02 Urine Appearance CLEAR 06/13/19 06:02 Urine pH 5.0 (5.0-9.0) 06/13/19 06:02 Ur Specific [place] 1.026 06/13/19 06:02 Urine Protein 30 mg/dL (NEGATIVE) H 06/13/19 06:02 Urine Glucose (UA) NEGATIVE mg/dL (NEGATIVE) 06/13/19 06:02 Urine Ketones TRACE mg/dL (NEGATIVE) H 06/13/19 06:02 Urine Blood NEGATIVE (NEGATIVE) 06/13/19 06:02 Urine Nitrite NEGATIVE (NEGATIVE) 06/13/19 06:02 Urine Bilirubin NEGATIVE (NEGATIVE) 06/13/19 06:02 Urine Urobilinogen 2.0 mg/dL (<2.0) H 06/13/19 06:02 Ur Leukocyte Esterase SMALL (NEGATIVE) H 06/13/19 06:02 Urine WBC (Auto) 11 /HPF 06/13/19 06:02 Urine RBC (Auto) 5 /HPF 06/13/19 06:02 U Hyaline Cast (Auto) 1 /LPF 06/13/19 06:02 Squamous Epi Cells Auto 1 /HPF 06/13/19 06:02 Urine Mucus (Auto) FEW /LPF 06/13/19 06:02 Urine Ascorbic Acid NEGATIVE (NEGATIVE) 06/13/19 06:02 Membranes Rupture POSITIVE (NEGATIVE) H 06/13/19 01:45 Urine Opiates Screen UNCONFIRMED POSITIVE 06/13/19 06:02 Urine Methadone Screen NEGATIVE 06/13/19 06:02 Ur Barbiturates Screen NEGATIVE 06/13/19 06:02 Ur Phencyclidine Scrn NEGATIVE 06/13/19 06:02 Ur Amphetamines Screen NEGATIVE 06/13/19 06:02 U Benzodiazepines Scrn NEGATIVE 06/13/19 06:02 Urine Cocaine Screen NEGATIVE 06/13/19 06:02 U Marijuana (THC) Screen NEGATIVE 06/13/19 06:02 RPR NONREACTIVE (NONREACTIVE) 06/13/19 02:38 Blood Type O POSITIVE 06/13/19 02:38 Antibody Screen NEGATIVE 06/13/19 02:38 Plan Health Concerns: iron rich foods Plan of Treatment: d/c home, f/up with [facility] in 4 wks for PP check Time Spent: Less than 30 Minutes
[2019-06-15 11:04] VITALS: BP 151/92
--- NOTE | 2019-06-19 11:59 | Delivery Summary ---
Del Sum A-C Datetime Report Generated by CPN: 06/19/2019 11:59 DELIVERY PERSONNEL DELIVERY PERSONNEL: [id number] Delivery Doctor:: Suzy Mtz CNM Nurse Reimbursement Rep Certified:: Suzy Mtz CNM Labor and Delivery Nurse:: Dorota Barahona RNwood fence installer Nurse:: Aarti Cullen RN Nursery Nurse:: Meg Min RN Nursery Nurse:: Ronna Dodge RN Laboratory Analyst/OFFICE CHAIR ASSEMBLER: Danae Mckoy CNA II MATERNAL INFORMATION Delivery Anesthesia: Epidural Medications After Delivery: Pitocin Drip 20 Units/1000ml NSS; Cytotec 1000mcg Per Rectum/Vagina Delivery QBL Comment: 500 in bag+379 vsfibxf=655 Total QBL Maternal Complications: None Provider Comments: of VFI, crying and in stable condition, placed on pts abdoman. Cord clamped and cut, cord blood obtained. Placenta S/C/I, Dark Blood Clots noted w/ delivery, along with some uterine atony noted after placenta. IV Pitocin infusing, 1000mcg rectal Cytotec given. QBL > 500 ml. Placenta to pathology. Bleeding decreased w/ fundal massage, evacuation of blood clots, IV Pitocin and Cytotec. Perineum intact. Pt in stable condtion, plans to bottle feed. Apgars 8,9. Attending MD is Dr Mcmahon. LABOR SUMMARY EDC: 06/29/2019 00:00 No. Babies in Womb: 1 Attempted: No Labor Anesthesia: Epidural LABOR INFORMATION Reason for Induction: Not Applicable Oxytocin: N/A Group B Beta Strep: Positive Antibiotics # of Doses: 2 Name of Antibiotic Given: pennicillan Steroids Given: None Reason Steroids Not Administered: Not Applicable MEMBRANES Membranes Rupture Method: Spontaneous Rupture of Membranes: 06/13/2019 01:00 Length of Rupture (hr): 9.85 Amniotic Fluid Color: Bloody Amniotic Fluid Amount: Small STAGES OF LABOR Stage 3 hr: 0 Stage 3 min: 8 VAGINAL DELIVERY Episiotomy: None Laceration #1: None Laceration Extension #1: N/A Laceration Repair: Not Applicable Sponge Count Correct: Yes Sharps Count Correct: Yes BABY A INFORMATION Infant Delivery Date/Time: 06/13/2019 10:51 Method of Delivery: Vaginal Method of Delivery: Vaginal Nurse Controlled Delivery: No Born in Route : No : N/A Forceps: N/A Vacuum Extraction: N/A Shoulder Dystocia : No PRESENTATION/POSITION BABY A Presentation: Cephalic Cephalic Presentation: Vertex Breech Presentation: N/A PLACENTA INFORMATION BABY A Placenta Delivery Time : 06/13/2019 10:59 Placenta Method of Delivery: Spontaneous Placenta Status: Delivered SCORES BABY A Heart Rate 1 min: >100 bpm Resp Effort 1 min: Good Cry Reflex Irritability 1 min: Cough or Sneeze or Pulls Away Muscle Tone 1 min: Active Motion Color 1 min: Blue/Pale Resuscitation Effort 1 min: Tactile Stimulation SCORE 1 MIN: 8 Heart Rate 5 min: >100 bpm Resp Effort 5 min: Good Cry Reflex Irritability 5 min: Cough or Sneeze or Pulls Away Muscle Tone 5 min: Active Motion Color 5 min: Body [place], Extremities Blue SCORE 5 MIN: 9 INFANT INFORMATION BABY A Gestational Age at Delivery: 37.0 Gestational Status: Early Term- 37- 38.6 Weeks Outcome : Liveborn Infant Condition : Stable Sex: Female Sex: Female IDENTIFICATION BABY A Verification Date/Time: 06/13/2019 11:44 ID Band Number: [id number] Mother's Name Verified: Yes RN Verifying : C Sedgewick RN WEIGHT/LENGTH BABY A Birthweight (gm): 3754 Infant Weight (lb): 8 Weight (oz): 4 Length (in): 21.00 Length (cm): 53.34 CORD INFORMATION BABY A No. Cord Vessels: 3 Nuchal Cord : N/A ASSESSMENT BABY A Skin to Skin: Yes SIGNATURES Assignment: Mary Mcmahon MD Signature: with User ID: [email or web address] : with User ID: [email or web address]
--- NOTE | 2019-06-19 12:25 | Delivery Summary ---
Del Sum A-C Datetime Report Generated by CPN: 06/19/2019 12:24 DELIVERY PERSONNEL DELIVERY PERSONNEL: [id number] Delivery Doctor:: Suzy Mtz CNM Nurse Computer Mechanic Certified:: Suzy Mtz CNM Labor and Delivery Nurse:: Dorota Barahona RNtag machine operator Nurse:: Aarti Cullen RN Nursery Nurse:: Meg Min RN Nursery Nurse:: Ronna Dodge RN Fruit Bar Maker/LEARNING DISABILITIES TEACHER: Danae Mckoy CNA II MATERNAL INFORMATION Delivery Anesthesia: Epidural Medications After Delivery: Pitocin Drip 20 Units/1000ml NSS; Cytotec 1000mcg Per Rectum/Vagina Delivery QBL Comment: 500 in bag+379 teerxxw=430 Total QBL Maternal Complications: None Provider Comments: of VFI, crying and in stable condition, placed on pts abdoman. Cord clamped and cut, cord blood obtained. Placenta S/C/I, Dark Blood Clots noted w/ delivery, along with some uterine atony noted after placenta. IV Pitocin infusing, 1000mcg rectal Cytotec given. QBL > 500 ml. Placenta to pathology. Bleeding decreased w/ fundal massage, evacuation of blood clots, IV Pitocin and Cytotec. Perineum intact. Pt in stable condtion, plans to bottle feed. Apgars 8,9. Attending MD is Dr Mcmahon. LABOR SUMMARY EDC: 06/29/2019 00:00 No. Babies in Womb: 1 Attempted: No Labor Anesthesia: Epidural LABOR INFORMATION Reason for Induction: Not Applicable Oxytocin: N/A Group B Beta Strep: Positive Antibiotics # of Doses: 2 Name of Antibiotic Given: pennicillan Steroids Given: None Reason Steroids Not Administered: Not Applicable MEMBRANES Membranes Rupture Method: Spontaneous Rupture of Membranes: 06/13/2019 01:00 Length of Rupture (hr): 9.85 Amniotic Fluid Color: Bloody Amniotic Fluid Amount: Small STAGES OF LABOR Stage 3 hr: 0 Stage 3 min: 8 VAGINAL DELIVERY Episiotomy: None Laceration #1: None Laceration Extension #1: N/A Laceration Repair: Not Applicable Sponge Count Correct: Yes Sharps Count Correct: Yes BABY A INFORMATION Infant Delivery Date/Time: 06/13/2019 10:51 Method of Delivery: Vaginal Method of Delivery: Vaginal Nurse Controlled Delivery: No Born in Route : No : N/A Forceps: N/A Vacuum Extraction: N/A Shoulder Dystocia : No PRESENTATION/POSITION BABY A Presentation: Cephalic Cephalic Presentation: Vertex Breech Presentation: N/A PLACENTA INFORMATION BABY A Placenta Delivery Time : 06/13/2019 10:59 Placenta Method of Delivery: Spontaneous Placenta Status: Delivered SCORES BABY A Heart Rate 1 min: >100 bpm Resp Effort 1 min: Good Cry Reflex Irritability 1 min: Cough or Sneeze or Pulls Away Muscle Tone 1 min: Active Motion Color 1 min: Blue/Pale Resuscitation Effort 1 min: Tactile Stimulation SCORE 1 MIN: 8 Heart Rate 5 min: >100 bpm Resp Effort 5 min: Good Cry Reflex Irritability 5 min: Cough or Sneeze or Pulls Away Muscle Tone 5 min: Active Motion Color 5 min: Body [place], Extremities Blue SCORE 5 MIN: 9 INFANT INFORMATION BABY A Gestational Age at Delivery: 37.0 Gestational Status: Early Term- 37- 38.6 Weeks Outcome : Liveborn Infant Condition : Stable Sex: Female Sex: Female IDENTIFICATION BABY A Verification Date/Time: 06/13/2019 11:44 ID Band Number: [id number] Mother's Name Verified: Yes RN Verifying : C Sedgewick RN WEIGHT/LENGTH BABY A Birthweight (gm): 3754 Infant Weight (lb): 8 Weight (oz): 4 Length (in): 21.00 Length (cm): 53.34 CORD INFORMATION BABY A No. Cord Vessels: 3 Nuchal Cord : N/A ASSESSMENT BABY A Skin to Skin: Yes SIGNATURES Assignment: Mary Mcmahon MD Signature: with User ID: Drea : with User ID: [email or web address]
== END 2019-06-15 13:05 | disposition home or self-care (01) | DRG 806 ==
LOC: LC 01:33 → LR 02:15 → 2S 14:30
PROVIDERS: ADMIT Obstetrics & Gynecology; ATTEND Obstetrics & Gynecology
PROC: 10E0XZZ Delivery of Products of Conception, External Approach (ICD-10-PCS; principal; 2019-06-13)
PROC: 0UC97ZZ Extirpation of Matter from Uterus, Via Natural or Artificial Opening (ICD-10-PCS; 2019-06-13)
DX: O99.824 Streptococcus B carrier state complicating childbirth (principal); D62 Acute posthemorrhagic anemia; Z37.0 Single live birth; O90.81 Anemia of the puerperium; O72.1 Other immediate postpartum hemorrhage; Z3A.37 37 weeks gestation of pregnancy; Z91.013 Allergy to seafood
CPT/HCPCS: 1967; 36415; 80307; 81001; 82962; 84112; 85025; 85027; 86592; 86850; 86900; 86901; 88307; J2270; J2540; J2550; J2590; J3010; J3490; J7060